=== PATIENT | female | born 1965 | race Hispanic/Latino ===

== ENCOUNTER 2016-06-02 01:34 | Emergency (ER) | payer MEDICAID, MEDICARE ==
[2016-06-02 02:02] LABS: Bilirubin Negative (Negative); Blood, Urine Negative (Negative); Glucose, Urine (Dipstick) 250 mg/dL (Negative); Ketone, Urine Negative (Negative); Nitrite Negative (Negative); Protein, Urine (Dipstick) Negative (Neg-Trace); Urobilinogen 0.2 mg/dL (0.2-1.0)
[2016-06-02] MEDS ORDERED: Ibuprofen 800 MG TAB ONE (02:13)
[2016-06-02] MEDS ORDERED: HYDROcodone/Acetaminophen 10/325 mg Tablet ONE (02:13)
[2016-06-02] MEDS ORDERED: Orphenadrine Citrate 60 MG/2 ML VIAL ONE (02:44)
--- NOTE | 2016-06-02 03:11 | PICIS ---
[facility] EMERGENCY RECORD TRIAGE (TueJun 02, 2016 01:41 KSPL) TRIAGE NOTES: pain started approx 3 days ago and "just got worse tonight". (TueJun 02, 2016 01:41 KSPL) PATIENT: NAME: Deena Hatch, AGE: 50, GENDER: female, : Sat 1965, TIME OF GREET: TueJun 02, 2016 01:35, PREFERRED LANGUAGE: Cambodian, ETHNICITY: or , HIGH ALERT: HIGH ALERT 3, ECODE BILLING MAP: [facility], SSN: [id number], Zip Code: [address], KG WEIGHT: 50.80, , , PERSON ID: [id number], PAYMENT: [employer], PCP: Parker. (TueJun 02, 2016 01:41 KSPL) PHONE: . (01:49) COMPLAINT: lower back pain. (TueJun 02, 2016 01:41 KSPL) ADMISSION: URGENCY: 4 Non Urgent, ADMISSION SOURCE: Home, TRANSPORT: CAR, BED: TRIAGE. (TueJun 02, 2016 01:41 KSPL) SIRS SCORING: Heart Rate 110-139 (2), Temp range 96.8-101.1 (0), respiratory rate 12-24 (0), Mental Status altered: no (0), Total SIRS Score 2. (01:44 KSPL) TRIAGE SCREENING: Patient denies suicidal ideation, Patient denies presence of domestic violence. 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 (01:44 KSPL) PROVIDERS: TRIAGE NURSE: Priya Thompson RN. (TueJun 02, 2016 01:41 KSPL) VITAL SIGNS: BP 135/91, Pulse 127, Resp 18/, Temp 98.1, (Oral), Pain 8, O2 Sat 99, on Room Air, Time 06/02/2016 01:38. (01:38 KSPL) PREVIOUS VISIT ALLERGIES: Toradol. (TueJun 02, 2016 01:41 KSPL) Toradol. (01:44 KSPL) KNOWN ALLERGIES Toradol: Source: Patient, - anxiety CURRENT MEDICATIONS metFORMIN: TABLET : Strength - 500 mg : ORAL Patient Dose: 4 tabs once a day (at bedtime). (01:48 KSPL) glipiZIDE: TABLET : Strength - 5 mg : ORAL Patient Dose: once a day (in the morning). (01:48 KSPL) Lantus: VIAL (ML) : Strength - 100 unit/mL : SUBCUTANEOUS Patient Dose: 50 units Subcutaneous once a day (in the morning). (01:48 KSPL) lisinopril: TABLET : Strength - 10 mg : ORAL Patient Dose: once a day (in the morning). (01:48 KSPL) Zoloft: TABLET : Strength - 100 mg : ORAL Patient Dose: once a day (at bedtime). (01:48 KSPL) HumaLOG: VIAL (ML) : Strength - 100 unit/mL : SUBCUTANEOUS &a-1R&a+25V*p+0X*o6506P*c202B*c15G*c2P*p-0X&a-25V&a+1R Name: Deena Hatch : 1965 F50 MedRec: [id number] AcctNum: [id number] Prepared: TueJun 02, 2016 03:09 by Interface Page 1 of 8 pMD [facility] EMERGENCY RECORD Patient Dose: Unknown.SS in between other insulins. (01:48 KSPL) SEROquel: TABLET : Strength - 100 mg : ORAL Patient Dose: Unknown.dosage unknown. (01:50 KSPL) VITAL SIGNS VITAL SIGNS: BP: 135/91, Pulse: 127, Resp: 18/, Temp: 98.1 (Oral), Pain: 8, O2 sat: 99 on Room Air, Time: 06/02/2016 01:38. (01:38 KSPL) Pulse: 101, Resp: 16 (Non-Labored), Pain: 8, O2 sat: 98 on Room Air, Time: 06/02/2016 02:30. (02:30 KSPL) BP: 127/88, Pulse: 93, Resp: 16 (Non-Labored), Temp: 98.5 (Oral), Pain: 4, O2 sat: 100 on Room Air, Time: 06/02/2016 03:05. (03:05 KSPL) NURSING ASSESSMENT: GENITOURINARY (01:44 KSPL) CONSTITUTIONAL: Complex assessment performed, Patient arrives ambulatory, Gait steady, History obtained from patient, Patient appears comfortable, Patient cooperative, Patient alert, Oriented to person, place and time, Skin warm, Skin dry, Skin normal in color, Mucous membranes pink, Mucous membranes moist, Patient is well-groomed, Patient complains of lower back pain, pt says she has had this type of pain before and it was "something to do with my kidneys". PAIN FEMALE: burning pain, lower back, Onset of pain 05/29/2016, on a scale 0-10 patient rates pain as 8, pt states "hurt for about 3 days, but just got worse tonight". GENITOURINARY FEMALE: no associated urinary complaints, no urinary catheter present. ABDOMEN: Abdomen assessment findings include abdomen symmetrical, Abdomen soft, non-tender, Associated with nausea, no associated vomiting. SAFETY: Side rails up, Cart/Stretcher in lowest position, Family at bedside, Call light within reach, Hospital ID band on, Patient in view of the nursing station. NURSING PROCEDURE: URINE COLLECTION (01:50 RAAD) PATIENT IDENTIFIER: Patient actively involved in identification process, Patient's identity verified by patient stating name, Patient's identity verified by patient stating date. URINE COLLECTION FEMALE: Urine collected by mid-stream clean catch, Output amount (mL) 5, urine clear in color, and clear, Specimen labeled in the presence of the patient and sent to lab, Specimen obtained for culture labeled in the presence of the patient and sent to lab. SAFETY: Side rails up, Cart/Stretcher in lowest position, Call light within reach, Hospital ID band on. ORDER DETAILS &a-1R&a+25V*p+0X*[id number]*c202B*c15G*c2P*p-0X&a-25V&a+1R Name: Deena Hatch : 1965 F50 MedRec: [id number] AcctNum: [id number] Prepared: TueJun 02, 2016 03:09 by Interface Page 2 of 8 D [facility] EMERGENCY RECORD Order Name: Culture, Urine, Status: Active, Time: 01:44 06/02/2016, User: CHAYO, - Ordered for: DO Polanco Joseph, - Entered by: DO Polanco Joseph - TueJun 02, 2016 01:44, - Quantity: 1, Order Name: Urinalysis w/ Rflx Microscopic, Status: Active, Time: 01:44 06/02/2016, User: CHAYO, - Ordered for: DO Polanco Joseph, - Entered by: DO Polanco Joseph - TueJun 02, 2016 01:44, - Quantity: 1. MEDICATION ADMINISTRATION SUMMARY Drug Name: Norflex injection, Dose Ordered: 60 mg, Route: Intramuscular, Status: Given, Time: 02:50 06/02/2016, Drug Name: [place], Dose Ordered: 10 mg, Route: Oral, Status: Given, Time: 02:16 06/02/2016, Drug Name: Motrin, Dose Ordered: 800 mg, Route: Oral, Status: Given, Time: 02:15 06/02/2016, Detailed record available in Medication Service section. MEDICATION SERVICE Motrin: Order: Motrin (ibuprofen) - Dose: 800 mg : Oral POTENTIAL ALLERGY REACTION: 'Toradol [ketorolac/ketorolac tromethamine]' - Not a true drug allergy Schedule: Now Ordered by: Santiago Polanco DO Entered by: Santiago Polanco DO TueJun 02, 2016 02:11 , Acknowledged by: Priya Thompson RN TueJun 02, 2016 02:12 Documented as given by: Priya Thompsno RN TueJun 02, 2016 02:15 Patient, Medication, Dose, Route and Time verified prior to administration. Amount given: 800 MG, Site: Medication administered P.O., Patient appears Awake and alert- acceptable, Correct patient, time, route, dose and medication confirmed prior to administration, Patient advised of actions and side-effects prior to administration, Allergies confirmed and medications reviewed prior to administration, Patient in position of comfort, Side rails up, Cart in lowest position, Call light in reach, MOTRIN GIVEN WITH GLASS OF WATER, PT TOLERATED WELL. : Follow Up : Response assessment performed, No signs or symptoms of allergic reaction noted, Advised not to ambulate without assistance, Patient in position of comfort, Side rails up, Cart in lowest position, pt states pain is "about a 4 now, it helped a lot". (02:45 KSPL) [place]: Order: [place] (hydrocodone bitartrate/acetaminophen) - Dose: 10 mg : Oral Schedule: Now &a-1R&a+25V*p+0X*b0920H*c202B*c15G*c2P*p-0X&a-25V&a+1R Name: Deena Hatch : 1965 F50 MedRec: [id number] AcctNum: [id number] Prepared: TueJun 02, 2016 03:09 by Interface Page 3 of 8 pMD [facility] EMERGENCY RECORD Ordered by: Santiago Polanco DO Entered by: Santiago Polanco DO TueJun 02, 2016 02:11 , Acknowledged by: Priya Thompson RN TueJun 02, 2016 02:12 Documented as given by: Priya Thompsno RN TueJun 02, 2016 02:16 Patient, Medication, Dose, Route and Time verified prior to administration. Amount given: 10 MG, Site: Medication administered P.O., Patient appears Awake and alert- acceptable, Correct patient, time, route, dose and medication confirmed prior to administration, Patient advised of actions and side-effects prior to administration, Allergies confirmed and medications reviewed prior to administration, Patient in position of comfort, Side rails up, Cart in lowest position, Call light in reach, GIVEN WITH GLASS OF WATER, PT TOLERATED WELL. : Follow Up : Response assessment performed, No signs or symptoms of allergic reaction noted, Advised not to ambulate without assistance, Patient in position of comfort, Side rails up, Cart in lowest position, Call light in reach, pt states pain is "about a 4 now, it helped a lot". (02:45 KSPL) Norflex injection: Order: Norflex injection (orphenadrine citrate) - Dose: 60 mg : Intramuscular Schedule: Now Ordered by: Santiago Polanco DO Entered by: Santiago Polanco DO TueJun 02, 2016 02:36 , Acknowledged by: Priya Thompson RN TueJun 02, 2016 02:40 Documented as given by: Priya Thompson RN TueJun 02, 2016 02:50 Patient, Medication, Dose, Route and Time verified prior to administration. IM medication, Amount given: 60 mg, Medication administered to right hip, Patient appears Awake and alert- acceptable, Correct patient, time, route, dose and medication confirmed prior to administration, Patient advised of actions and side-effects prior to administration, Allergies confirmed and medications reviewed prior to administration, Patient in position of comfort, Side rails up, Cart in lowest position, Call light in reach, site cleaned with alcohol and allowed to dry before injection given, pt tolerated well. awaiting IM wait time for discharge. HPI BACK (01:52 JPIP) CHIEF COMPLAINT: Patient presents for evaluation of pain, to the lower back. HISTORIAN: History provided by patient. MECHANISM OF INJURY: No apparent mechanism of injury. LOCATION: Symptoms are localized to the back, left lumbar region, right lumbar region, No radiation to back, No radiation back to front, No radiation to the groin. QUALITY: Pain is dull in nature, not a tearing pain no migration or radiation. SEVERITY: Current severity of pain rated as 8/10. TIME COURSE: Gradual onset of symptoms, Date and time of onset was 3 days [employer]AI [employer], Symptoms are &a-1R&a+25V*p+0X*[id number]*c202B*c15G*c2P*p-0X&a-25V&a+1R Name: Deena Hatch : 1965 F50 MedRec: [id number] AcctNum: [id number] Prepared: TueJun 02, 2016 03:09 by Interface Page 4 of 8 pMD [facility] EMERGENCY RECORD worsening, tonight. ASSOCIATED WITH: No associated bladder incontinence, No associated bowel incontinence, No associated dysuria, No associated fever, No associated inability to ambulate, No associated motor weakness, No associated numbness, No associated problems with urination, No associated radiation of pain, No associated sciatica, No associated tingling. EXACERBATED BY: Patient's condition exacerbated by movement, Patient's condition exacerbated by walking. RELIEVED BY: Patient's condition relieved by nothing. ROS (01:53 JPIP) CONSTITUTIONAL: Historian denies chills, denies fever. CARDIOVASCULAR: Historian denies chest pain, denies diaphoresis, denies edema, denies palpitations. RESPIRATORY: Historian denies cough, denies shortness of breath. GI: Historian denies abdominal pain, denies constipation, denies diarrhea, denies nausea, denies vomiting. GENITOURINARY FEMALE: Historian denies dysuria, denies frequency, denies hematuria, denies urgency. MUSCULOSKELETAL: Historian reports back pain. SKIN: Historian denies rash, denies skin changes, denies skin lesions. NOTES: All systems reviewed, negative except as described above. PAST MEDICAL HISTORY MEDICAL HISTORY: Flu vaccine not up to date, Tetanus immunization up to date, Pneumococcal vaccine up to date, Flu vaccine up to date, Tetanus immunization up to date, Pneumococcal vaccine up to date, Past medical history includes neurological disease, generalized seizures, Fibromyalgia, Past medical history includes history of diabetes (INSULIN DEPENDENT). HTN. (01:44 KSPL) FEMALE SURGICAL HISTORY: Surgical history of cholecystectomy, Surgical history of section X3, Surgical history of hysterectomy, Surgical history of orthopedic surgery, Shoulder x 2. (01:44 KSPL) PSYCHIATRIC HISTORY: Psychiatric history includes, anxiety, depression, Previous psychiatric history: PTSD. 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 (01:44 KSPL) Social History includes history of methamphetamine use. (02:12 JPIP) NOTES: Nursing records reviewed, Old chart reviewed, Medication list reviewed. (01:56 JPIP) PHYSICAL EXAM CONSTITUTIONAL: Vital Signs Reviewed, Patient afebrile, Pulse, tachycardic, Blood pressure, hypertensive, Respiratory rate normal, Patient &a-1R&a+25V*p+0X*q8564U*c202B*c15G*c2P*p-0X&a-25V&a+1R Name: Deena Hatch : 1965 F50 MedRec: [id number] AcctNum: [id number] Prepared: TueJun 02, 2016 03:09 by Interface Page 5 of 8 pMD [facility] EMERGENCY RECORD appears, in moderate pain distress, Patient alert and oriented to person, place and time, when patient was asked to walk to the bathroom to provide a urine specimen she walked to and from the bathroom without much difficulty. (01:54 JPIP) EYES: Eye exam included findings of eyelids normal to inspection, Conjunctiva normal, Sclera normal, no periorbital ecchymosis, no periorbital edema, no periorbital erythema. (01:54 JPIP) NECK: Neck exam included findings of normal range of motion. (01:54 JPIP) RESPIRATORY CHEST: Respiratory exam included findings of no respiratory distress, Breath sounds clear. (01:54 JPIP) CARDIOVASCULAR: Cardiovascular exam included findings of, rate tachycardic, rhythm regular, Heart sounds normal, no murmurs. (01:54 JPIP) ABDOMEN FEMALE: Abdominal exam included findings of abdomen nontender, Liver normal, Spleen normal, no mass, no peritoneal signs, no rigidity, no guarding, no rebound. (01:54 JPIP) BACK: Back exam included findings of normal inspection, Tenderness, midline to the lower back, paraspinal to the left lower back, paraspinal to the right lower, Costovertebral angle tenderness, bilaterally. (01:54 JPIP) UPPER EXTREMITY: Upper extremity exam included findings of inspection normal, Range of motion normal. (01:54 JPIP) LOWER EXTREMITY: Lower extremity exam included findings of inspection normal, Range of motion normal, no edema. (02:19 JPIP) NEURO: Neuro exam findings include patient oriented to person, place and time, Apoorva coma scale 15, no focal motor deficits. (01:54 JPIP) SKIN: Skin exam included findings of skin warm, dry, and normal in color. (01:54 JPIP) PSYCHIATRIC: Psychiatric exam included findings of patient oriented to person place and time, Normal affect. (01:54 JPIP) LAB INTERPRETATION (02:19 JPIP) INTERPRETATION: I reviewed the lab results, All labs normal except as noted below, Urinalysis abnormal, leukocytes negative, erythrocytes negative, nitrites negative, bacteria negative, ketones negative, positive for glucose, protein negative. EVENTS TRANSFER: Triage to Emergency Triage. (TueJun 02, 2016 01:41 KSPL) Emergency Triage to Emergency Room -02. (01:42 KSPL) Removed from Emergency Emergency Room -02. (03:06 KSPL) O2SAT INTERPRETATION (01:44 JPIP) O2SAT: Single pulse oximetry, Oxygen saturation 99%, on room air, Oxygen saturation interpretation: Normal, No intervention required. &a-1R&a+25V*p+0X*u5045Y*c202B*c15G*c2P*p-0X&a-25V&a+1R Name: Deena Hatch : 1965 F50 MedRec: [id number] AcctNum: [id number] Prepared: TueJun 02, 2016 03:09 by Interface Page 6 of 8 pMD [facility] EMERGENCY RECORD DOCTOR NOTES (02:34 JPIP) RE-EVALUATION: Routine re-evaluation, after administration of analgesics, The patient's condition has improved, tachycardia has decreased. PROBLEM LIST No recorded problems DIAGNOSIS (02:38 JPIP) FINAL: PRIMARY: Low back pain. DISPOSITION PATIENT: Disposition Type: Discharge, Disposition: *Discharge Home, Condition: Good. (02:38 JPIP) Patient left the department. (03:06 KSPL) INSTRUCTION (02:37 JPIP) DISCHARGE: LOW BACK PAIN GENERAL. SPECIAL: Follow up with Primary Care Physician within 72 hours Do not take motrin/ibuprofen/alleve/naprosyn while taking the diclofenac Return to the Emergency Department for increased symptoms problems or concerns. PRESCRIPTION (02:37 JPIP) diclofenac oral: TABLET, DELAYED RELEASE (ENTERIC COATED) : 75 mg : ORAL : Quantity: 1 Unit: tab(s) Route: ORAL Schedule: 2 times a day (with meals) Dispense: 30 May substitute. Refills: No Refills POTENTIAL ALLERGY REACTION: 'Toradol [ketorolac/ketorolac tromethamine]' Override Rationale: Not a true drug allergy. NOTES: as needed for pain No refills. Soma: TABLET : 350 mg : ORAL : Quantity: 1 Unit: tab(s) Route: ORAL Schedule: 1 to 3 times a day Dispense: 20 May substitute. Refills: No Refills . NOTES: Muscle relaxant No refills. Ultram: TABLET : 50 mg : ORAL : Quantity: 1-2 Unit: tab(s) Route: ORAL Schedule: every 8 hours PRN Dispense: 30 May substitute. Refills: No Refills . NOTES: for pain No refills. RESULTS (02:12 JPIP) LABORATORY: Urinalysis w/ Rflx Microscopic Collection DT: TueJun 02, 2016 01:59, Color Yellow , Range (Yellow), &a-1R&a+25V*p+0X*t7431M*c202B*c15G*c2P*p-0X&a-25V&a+1R Name: Deena Hatch : 1965 F50 MedRec: [id number] AcctNum: [id number] Prepared: TueJun 02, 2016 03:09 by Interface Page 7 of 8 pMD [facility] EMERGENCY RECORD Clarity Clear , Range (Clear), Specific [place], Urine 1.025 , Range (1.005-1.030), pH, Urine 5.5 , Range (5.0-9.0), Leukocyte Negative , Range (Negative), Nitrite Negative , Range (Negative), Protein, Urine (Dipstick) Negative mg/dL, Range (Neg-Trace), *Glucose, Urine (Dipstick) 250 - H mg/dL, Range (Negative), Ketone, Urine Negative mg/dL, Range (Negative), Urobilinogen 0.2 mg/dL, Range (0.2-1.0), Bilirubin Negative , Range (Negative), Blood, Urine Negative , Range (Negative). [place]: CHAYO=DO Polanco Joseph KSPL=BALTA Thompson, Pryia RAAD=BALTA Dejesus, Sybil &a-1R&a+25V*p+0X*o6837J*c202B*c15G*c2P*p-0X&a-25V&a+1R Name: Deena Hatch : 1965 F50 MedRec: [id number] AcctNum: [id number] Prepared: TueJun 02, 2016 03:09 by Interface Page 8 of 8 pMD MTDD
== END 2016-06-02 03:06 | disposition home or self-care (01) ==
LOC: BURERS 01:34
DX: M54.5 Low back pain (principal); E11.9 Type 2 diabetes mellitus without complications; F32.9 Major depressive disorder, single episode, unspecified; F41.9 Anxiety disorder, unspecified
CPT/HCPCS: 81003; 87086; 96372; J2360

== ENCOUNTER 2016-08-01 15:48 | Emergency (ER) | payer MEDICARE ==
[2016-08-01] MEDS ORDERED: Fluorescein Opthalmic Strip ONE (15:58)
[2016-08-01] MEDS ORDERED: Tetracaine HCl 0.5% Ophth Soln 2 ML Bottle ONE (15:58)
== END 2016-08-01 16:25 | disposition home or self-care (01) ==
LOC: BURERS 15:48
DX: H11.31 Conjunctival hemorrhage, right eye (principal); I10 Essential (primary) hypertension; E11.9 Type 2 diabetes mellitus without complications; F32.9 Major depressive disorder, single episode, unspecified; F41.9 Anxiety disorder, unspecified; Z79.4 Long term (current) use of insulin; Z79.899 Other long term (current) drug therapy
CPT/HCPCS: 99283

== ENCOUNTER 2017-08-17 08:04 | Emergency (ER) | payer MEDICARE, MEDICAID ==
[2017-08-17] MEDS ORDERED: Metoprolol Tartrate 5 MG/5 ML VIAL ONE ×2 (08:19→08:37)
[2017-08-17 08:31] LABS: #Basophils 0.1 thou/uL (0.0-0.2); #Lymphocytes 2.1 thou/uL (1.20-3.40); #Monocytes 0.7 thou/uL (0.11-0.59); #Neutrophils 10.6 thou/uL (1.40-6.50); %Basophils 0.7 % (0.0-1.0); %Eosinophils 0.4 % (0.0-10.0); %Lymphocytes 15.4 % (21.0-51.0); %Monocytes 5.3 % (0.0-10.0); %Neutrophils 78.2 % (42.0-75.0); Hemoglobin 14.7 g/dL (12.0-16.0); Mean Corpuscular Hemoglobin 28.2 pg (27.0-31.0); Mean Platelet Volume 8.2 fL (7.4-10.4); Platelet Count 326 thou/uL (130-400); RBC Distribution Width 11.9 % (11.5-14.5); Red Blood Cell (RBC) Count 5.21 mill/uL (4.20-5.40); White Blood Cell (WBC) Count 13.6 thou/uL (4.8-10.8)
[2017-08-17 08:35] LABS: INR-International Normal Ratio 0.9; PTT 26.9 SEC (22.9-36.1); Prothrombin Time 12.7 SEC (12.0-14.7)
[2017-08-17 08:45] LABS: ALT (SGPT) 15 U/L (8-55); AST (SGOT) 9 U/L (5-34); Albumin 4.3 g/dL (3.5-5.0); Alkaline Phosphatase 128 U/L (40-150); Anion Gap 16 mmol/L (10-20); BUN (Urea Nitrogen) 7 mg/dL (9.8-20.1); Bilirubin, Total 1.3 mg/dL (0.2-1.2); Calc. Creatinine Clearance 0 mL/min (70-130); Calcium 9.6 mg/dL (7.8-10.44); Carbon Dioxide 25 mmol/L (22-29); Chloride 95 mmol/L (98-107); Estimated GFR-MDRD 64; Globulin 2.9 g/dL (2.4-3.5); Lipase 22 U/L (8-78); Potassium 3.4 mmol/L (3.5-5.1); Protein, Total 7.2 g/dL (6.0-8.3); Sodium 133 mmol/L (136-145)
[2017-08-17 08:46] LABS: CKMB 0.5 ng/mL (0-6.6); Troponin I Less than 0.010 ng/mL (< 0.028)
[2017-08-17 08:56] LABS: Glucose 600 mg/dL (70-105)
[2017-08-17] MEDS ORDERED: Insulin Regular 300 UNITS/3 ML VIAL ONE (09:24)
--- NOTE | 2017-08-17 19:52 | RAD ---
PORTABLE CHEST: 08/17/17 An AP portable film at 0805 is compared with a 06/28/14 study from [facility]. The heart is normal in size and the lungs are clear. No infiltrate or effusion was seen. Faint calcif ication is seen in the aortic arch. The mediastinum appears normal. IMPRESSION: No acute thoracic finding. POS: HOME
== END 2017-08-17 09:55 | disposition home or self-care (01) ==
LOC: BURERS 08:04
DX: R07.2 Precordial pain (principal); I10 Essential (primary) hypertension; E11.9 Type 2 diabetes mellitus without complications; F41.9 Anxiety disorder, unspecified; F32.9 Major depressive disorder, single episode, unspecified; F43.10 Post-traumatic stress disorder, unspecified; Z79.4 Long term (current) use of insulin
CPT/HCPCS: 36416; 71045; 80053; 82553; 83690; 84484; 85025; 85610; 85730; 93005; 94760; 96374; 96375; J1815